=== PATIENT | female | born 1965 | race Caucasian/White ===

== ENCOUNTER 2018-03-16 16:43 | Emergency (ER) | payer OTHER ==
--- NOTE | 2018-03-16 16:54 | PDOC ---
Rapid Medical Evaluation Chief Complaint: Pain Time Seen by Provider: 03/16/18 16:52 Medical Evaluation: Allergies Allergy/AdvReac Type Severity Reaction Status Date / Time No Known Allergies Allergy Verified 03/16/18 16:51 03/16/18 16:52 I have performed a brief in person evaluation of this patient. The patient presents with a chief complaint of: left leg pain Pt is a 52 Y female who complains of left leg pain x last night. Pertinent PE: Constitutional: Ambulated to exam room, with limp Skin: Clear Lungs: Clear Heart: RRR Abd: Nontender MS: Pt has pain on the left LE Neuro: Alert and oriented Psych: Appropriate affect The patient will proceed to: pt will go to [facility] for further evaluation. Discharge Disposition - Diagnosis Pain - Referrals Referrals: Dedra Morales MD [Primary Care Provider] - - Patient Instructions - Post Discharge Activity
[2018-03-16 16:55] VITALS: BP 143/79; PULSE 83; TEMP 98.7; BMI 25.7
--- NOTE | 2018-03-16 18:20 | PDOC ---
History of Present Illness - General Chief Complaint: Pain Stated Complaint: PAIN ON LEFT LEG Time Seen by Provider: 03/16/18 16:52 History Source: Patient Exam Limitations: No Limitations - History of Present Illness Initial Comments: 03/16/18 18:17 Patient came for evaluation of left groin pain. States for approximately 10 days has had worsening pain in her groin area where now she has difficulty lifting her leg. Is uncertain as to cause, denies any recent trauma or changes in exercise however has had some increasing amounts of footwear changes. Denies fever, has some frequency with her urine and states has some mild strong smell however does not suffer from urinary tract infections regularly. Denies problems with vagina or bowels Occurred: reports: last week Severity: reports: mild, moderate Pain Location: reports: lower extremity (left groin) Modifying Factors: improves with: None Loss of Consciousness: no loss of consciousness Associated Symptoms (Fall): denies symptoms Past History - Travel Traveled outside of the country in the last 30 days: No Close contact w/someone who was outside of country & ill: No - Past Medical History Allergies/Adverse Reactions: Allergies Allergy/AdvReac Type Severity Reaction Status Date / Time No Known Allergies Allergy Verified 03/16/18 16:51 Home Medications: Ambulatory Orders Cyclobenzaprine HCl 10 mg PO Q8H PRN #14 tablet 03/16/18 Naproxen [Naprosyn -] 500 mg PO BID #30 tablet 03/16/18 COPD: No HTN: Yes - Suicide/Smoking/Psychosocial Hx Smoking History: Never smoked Cigars Per Day: 1 Information on smoking cessation initiated: Yes 'Breaking Loose' booklet given: 03/16/18 Hx Alcohol Use: No Drug/Substance Use Hx: No Substance Use Type: None Review of Systems - Review of Systems Able to Perform ROS?: Yes Is the patient limited Yakut proficient: Yes Constitutional: Yes: Symptoms Reported, See HPI, Malaise HEENTM: No: Symptoms Reported Respiratory: No: Symptoms reported Musculoskeletal: Yes: Symptoms Reported, See HPI, Joint Pain (left groin at inguinal area ) Integumentary: Yes: See HPI. No: Symptoms Reported All Other Systems: Reviewed and Negative *Physical Exam - Vital Signs Last Vital Signs Temp Pulse Resp BP Pulse Ox 98.7 F 83 18 143/79 100 03/16/18 16:52 03/16/18 16:52 03/16/18 16:52 03/16/18 16:52 03/16/18 16:52 - Physical Exam General Appearance: Yes: Nourished, Appropriately Dressed, Apparent Distress, Mild Distress HEENT: positive: SHAMIR, Normal ENT Inspection, TMs Normal, Pharynx Normal Neck: positive: Supple. negative: Tender, Lymphadenopathy (R), Lymphadenopathy (L) Respiratory/Chest: positive: Lungs Clear, Normal Breath Sounds Gastrointestinal/Abdominal: positive: Soft Musculoskeletal: positive: Normal Inspection, Decreased Range of Motion, Muscle Spasm (tight musculature to the upper quads and unable to lift leg due to pain at that inguinal area. 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 NML intact, Fully Oriented, Alert, Normal Mood/ Affect, Normal Response, Motor Strength 5/5 Progress Note - Progress Note Progress Note: Analysis negative for infection UCG negative , Left Inguinal Strain- we'll treat with NSAIDs and cyclobenzaprine *DC/Admit/Observation/Transfer Diagnosis at time of Disposition: Inguinal strain Qualifiers: Encounter type: initial encounter Laterality: left Qualified Code(s): S76.212A - Strain of adductor muscle, fascia and tendon of left thigh, initial encounter - Discharge Dispostion Disposition: HOME Condition at time of disposition: Stable Decision to Admit order: No - Prescriptions Prescriptions: Cyclobenzaprine HCl 10 mg PO Q8H PRN #14 tablet PRN Reason: spasm Naproxen [Naprosyn -] 500 mg PO BID #30 tablet - Referrals Referrals: Dedra Morales MD [Primary Care Provider] - - Patient Instructions Printed Discharge Instructions: DI for Groin Strain Additional Instructions: Rest, ice to area on and off for 15 minutes 4-6 times a day Avoid heavy lifting or exercise until pain and swelling is resolved or until further directed Keep area highly elevated to reduce swelling Use splints/Jelani wrap as directed Followup with orthopedist in one to 2 days if not improving, if significantly improved may wait one week for followup with orthopedist May use ibuprofen 2-200 mg tablets every 6 hours as needed for pain - Post Discharge Activity Forms/Work/School Notes: Back to Work
[2018-03-16 18:36] LABS: URINE APPEARANCE CLEAR; URINE BILIRUBIN NEGATIVE (<2.0 mg/dL); URINE COLOR YELLOW; URINE GLUCOSE (UA) NEGATIVE (NEGATIVE); URINE KETONE NEGATIVE (NEGATIVE); URINE LEUK ESTERASE NEGATIVE (NEGATIVE); URINE NITRITE NEGATIVE (NEGATIVE); URINE PROTEIN NEGATIVE (NEGATIVE); URINE UROBILINOGEN NEGATIVE mg/dL (0.2-1.0)
[2018-03-16 18:38] LABS: HCG,QUALITATIVE URINE Negative
[2018-03-16] MEDS ORDERED: KETOROLAC TROMETHAMINE 60 MG/2 ML VIAL IM ONE (19:19)
[2018-03-16] MEDS ORDERED: KETOROLAC TROMETHAMINE 60 MG/2 ML VIAL ONE (19:21)
== END 2018-03-16 19:39 | disposition home or self-care (01) ==
LOC: JERFT 16:43
PROC: 3E0233Z Introduction of Anti-inflammatory into Muscle, Percutaneous Approach (ICD-10-PCS; principal; 2018-03-16)
DX: S76.212A Strain of adductor muscle, fascia and tendon of left thigh, initial encounter (principal)
CPT/HCPCS: 81003; 84703; 96372; 99281-25

== ENCOUNTER 2020-04-21 10:37 | Emergency (ER) | payer OTHER ==
[2020-04-21 10:47] VITALS: BP 125/65; PULSE 64; TEMP 97.8; BMI 24.9
[2020-04-21] MEDS ORDERED: ACETAMINOPHEN 500 MG TABLET (FP) PO ONE (11:35)
[2020-04-21] MEDS ORDERED: ACETAMINOPHEN 500 MG TABLET (FP) ONE (11:41)
[2020-04-21 11:55] LABS: URINE APPEARANCE CLEAR; URINE BILIRUBIN NEGATIVE (NEGATIVE); URINE COLOR YELLOW; URINE GLUCOSE (UA) NEGATIVE (NEGATIVE); URINE KETONE NEGATIVE (NEGATIVE); URINE LEUK ESTERASE NEGATIVE (NEGATIVE); URINE NITRITE NEGATIVE (NEGATIVE); URINE PROTEIN NEGATIVE (NEGATIVE); URINE UROBILINOGEN 0.2 mg/dL (0.2-1.0)
[2020-04-21] MEDS ORDERED: KETOROLAC TROMETHAMINE 60 MG/2 ML VIAL IM ONE (12:36)
[2020-04-21] MEDS ORDERED: KETOROLAC TROMETHAMINE 60 MG/2 ML VIAL ONE (12:37)
== END 2020-04-21 12:49 | disposition home or self-care (01) ==
LOC: JERFT 10:37
PROC: 3E0233Z Introduction of Anti-inflammatory into Muscle, Percutaneous Approach (ICD-10-PCS; principal; 2020-04-21)
DX: S39.92XA Unspecified injury of lower back, initial encounter (principal)
CPT/HCPCS: 72070-TC-FY; 72100-TC-FY; 81003; 99285-25

== ENCOUNTER 2021-04-18 16:51 | Emergency (ER) | payer OTHER ==
[2021-04-18 16:59] VITALS: PULSE 87; TEMP 98; BMI 25.7
[2021-04-18 17:04] VITALS: BP 135/81
[2021-04-18 18:42] LABS: PH,URINE 7.5 (5.0-8.0); URINE APPEARANCE CLEAR; URINE BILIRUBIN NEGATIVE (NEGATIVE); URINE COLOR YELLOW; URINE GLUCOSE (UA) NEGATIVE (NEGATIVE); URINE KETONE TRACE (NEGATIVE); URINE LEUK ESTERASE NEGATIVE (NEGATIVE); URINE NITRITE NEGATIVE (NEGATIVE); URINE PROTEIN NEGATIVE (NEGATIVE); URINE UROBILINOGEN 0.2 mg/dL (0.2-1.0)
== END 2021-04-18 20:41 | disposition home or self-care (01) ==
LOC: JERFT 16:51
DX: B35.4 Tinea corporis (principal)
CPT/HCPCS: 81003; 87086; 99283-25